=== PATIENT | female | born 1950 | race Caucasian/White ===

== ENCOUNTER 2023-01-08 05:34 | Day surgery (SDC) | payer MEDICARE, BC ==
[2023-01-03 15:43] LABS: BASOPHILS # (AUTO) 0.1 X10'3 (0-0.2); BASOPHILS % (AUTO) 1.1 % (0-1); EOSINOPHILS # (AUTO) 0.1 X10'3 (0-0.9); EOSINOPHILS % (AUTO) 1.4 % (0-6); LYMPHOCYTES # (AUTO) 1.8 X10'3 (1.1-4.8); LYMPHOCYTES % (AUTO) 27.3 % (21-51); MEAN CORPUSCULAR HEMOGLOBIN 31.3 PG (27.0-31.0); MEAN CORPUSCULAR VOLUME 92.1 FL (78-98); MEAN PLATELET VOLUME 9.7 FL (7.4-10.4); MONOCYTES # (AUTO) 0.5 X10'3 (0-0.9); MONOCYTES % (AUTO) 7.5 % (2-12); NEUTROPHILS # (AUTO) 4.2 X10'3 (1.8-7.7); NEUTROPHILS % (AUTO) 62.7 % (42-75); PRE OP HEMATOCRIT 41.5 % (35.0-45.0); PRE OP HEMOGLOBIN 14.1 g/dL (12.0-16.0); PRE OP PLATELET COUNT 201 X10'3 (140-440); RED CELL DISTRIBUTION WIDTH 13.1 % (11.5-14.5)
[2023-01-03 16:12] LABS: ALBUMIN 4.2 G/DL (3.4-5.0); ALBUMIN/GLOBULIN RATIO 1.1 (1.1-1.5); ALKALINE PHOSPHATASE 93 IU/L (46-116); BLOOD UREA NITROGEN 19 MG/DL (7-18); BUN/CREATININE RATIO 19.2 (10.0-20.0); CALCIUM 9.5 MG/DL (8.5-10.1); CHLORIDE 106 MMOL/L (99-107); CREATININE 0.99 MG/DL (0.40-0.90); PRE OP ALT 53 U/L (30-65); PRE OP ANION GAP 8 (8-16); PRE OP AST 36 U/L (10-37); PRE OP BILIRUB, TOTAL 0.4 MG/DL (0.0-1.0); PRE OP GLUCOSE 96 MG/DL (70-104); PRE OP POTASSIUM 3.6 MMOL/L (3.4-5.1); PRE OP SODIUM 143 MMOL/L (135-145); TOTAL CARBON DIOXIDE 29.2 MMOL/L (24-32); eGFR 55 ML/MIN
[~2023-01-08] VITALS: Ht 167.6 cm; Wt 66.9 kg
[2023-01-08] VITALS (7 sets, daily range): BP systolic 128–140; BP diastolic 72–87
[~2023-01-08 05:34] MED LIST: CHOL100046 PO; MULT-1085 PO; NAPR220C15 PO; cefazolin 2gm/D5W 100mL 100 ML IV ONE; famotidine 20mg tablet PO ONE; ringers solution, lacted 1,000 ML IV SCH
[2023-01-08] MEDS ORDERED: ROPIVAcaine 0.5% (5mg/ml) 30ml vial ONE (07:07)
[2023-01-08] MEDS ORDERED: fentaNYL/PF 50MCG/1 ML 2ML syringe ONE (07:32)
[2023-01-08] MEDS ORDERED: LIDOcaine 2% (20mg/ml) 5ml vial ONE (07:32)
[2023-01-08] MEDS ORDERED: propofol inj 20 ML IV ONE (07:32)
[2023-01-08] MEDS ORDERED: ondansetron/PF 4mg/2ml inj ONE (07:32)
[2023-01-08] MEDS ORDERED: midazolam 1 mg/ML 2ml injection ONE (07:32)
[2023-01-08] MEDS ORDERED: dexamethasone sod phosphate 4mg/ml inj. ONE (07:33)
[2023-01-08] MEDS ORDERED: ondansetron/PF 4mg/2ml inj IV PRN (07:40)
[2023-01-08] MEDS ORDERED: morphine 4 MG/ML inj SYRINge IV PRN (07:40)
[2023-01-08] MEDS ORDERED: morphine 2 MG/ML inj. syringe IV PRN (07:40)
[2023-01-08] MEDS ORDERED: fentaNYL/PF 50MCG/1 ML 2ML syringe IV PRN ×2 (07:40)
[2023-01-08] MEDS ORDERED: hydrALAZINE 20mg/ml inj. IV PRN (07:40)
[2023-01-08] MEDS ORDERED: labetalol 20mg/4ml (5mg/ml) syringe IV PRN (07:40)
[2023-01-08] MEDS ORDERED: ringers solution, lacted 1,000 ML IV SCH (07:40)
[2023-01-08] MEDS ORDERED: desflurane 240ml liquid inh. IH ONE (08:15)
[2023-01-08] MEDS ORDERED: acetaminophen 1,000mg/100ml IV 100 ML IV ONE (08:32)
--- NOTE | 2023-01-08 09:31 | NUR ---
Received from OR via [facility], accompanied by Anesthesiologist and report given by ANNIE Anesthesiologist. PATIENT WAKING UP, DENIES PAIN, V/S WNL, 20G TO LEFT HAND, drsg to RIGHT KNEE C/D/I. Addendum: 01/08/23 at 0942 by Isra Andujar RN Amended: Links added.
--- NOTE | 2023-01-08 10:16 | NUR ---
ALL DISCHARGE CRITERIA HAS BEEN MET. VSS, PAIN AT A TOLERABLE LEVEL, ABLE TO SAFELY AMBULATE AND TRANSFER SELF. IV TAKEN OUT WITHOUT ANY COMPLICATIONS. ALL DISCHARGE INSTRUCTIONS COVERED WITH PATIENT AND ALL QUESTIONS ANSWERED. PATIENT TAKEN OUT VIA WHEELCHAIR WITH ALL BELONGINGS TO PERSONAL VEHICLE WHERE FAMILY DROVE PATIENT HOME. Addendum: 01/08/23 at 1030 by Isra Andujar RN Amended: Links added.
== END 2023-01-08 10:16 | disposition home or self-care (01) ==
LOC: PAS 05:34
PROVIDERS: ATTEND Orthopaedic Surgery
DX: S83.231A Complex tear of medial meniscus, current injury, right knee, initial encounter (principal); S83.281A Other tear of lateral meniscus, current injury, right knee, initial encounter; Z98.890 Other specified postprocedural states; Z72.89 Other problems related to lifestyle; Z79.899 Other long term (current) drug therapy; Z85.048 Personal history of other malignant neoplasm of rectum, rectosigmoid junction, and anus; X58.XXXA Exposure to other specified factors, initial encounter; Y93.89 Activity, other specified; Y92.89 Other specified places as the place of occurrence of the external cause; Y99.8 Other external cause status
CPT/HCPCS: 29880; 36415; 80053; 82948; 85025; 93005; J0131; J0690; J1100; J2250; J2405; J2704; J2795; J3010; J3490; J7120; Z7506; Z7508; Z7512; A4215; A4618; A6449; A7000